=== PATIENT | female | born 2005 | race Caucasian/White ===

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

== ENCOUNTER → 2024-06-20 | Outpatient (CLI) | payer SELFPAY ==
[~2024-06-20] MED LIST: CYCLOBENZAPRINE10 M1 PO; NORCO 325 MG-51 TA1 PO
[2024-06-20 15:03] LABS: BASO # 0.02 K/mm3 (0.02-0.10); EOS # 0.14 K/mm3 (0.04-0.40); EOS % 1.4 % (1.0-5.0); HEMATOCRIT 41.3 % (37.0-47.0); HEMOGLOBIN 13.9 g/dL (12.5-16.0); LYMPH# 2.01 K/mm3 (1.50-4.00); MEAN CELL VOLUME 92 fl (78-100); MEAN CORPUSCULAR HEMOGLOBIN 31 pg (27-31); MEAN CORPUSCULAR HGB CONC 34 g/dL (33-37); MEAN PLATELET VOLUME 8.5 fl (7.4-10.4); MONO # 0.97 K/mm3 (0.20-0.80); NEU # 6.51 K/mm3 (1.40-6.50); PLATELET COUNT 376 K/mm3 (130-400); RED CELL DISTRIBUTION WIDTH 11.7 % (11.5-14.5); WHITE BLOOD COUNT 9.7 K/mm3 (4.8-10.8)
[2024-06-20 15:10] LABS: ALBUMIN 4.3 g/dL (3.5-5.0)
[2024-06-20 15:11] LABS: CALCIUM 9.5 mg/dL (8.3-10.5)
[2024-06-20 15:12] LABS: TOTAL PROTEIN 7.1 g/dL (6.4-8.3)
[2024-06-20 15:14] LABS: TOTAL BILIRUBIN 0.6 mg/dL (0.2-1.2)
== END ==
LOC: LAB 14:47
PROVIDERS: Physician Assistant
DX: R63.5 Abnormal weight gain (principal)